=== PATIENT | male | born 1960 | race Caucasian/White ===

== ENCOUNTER 2016-09-29 12:33 | Outpatient (CLI) | payer OTHER ==
--- NOTE | 2016-10-05 10:55 | DIAGNOSTIC IMAGING REPORT ---
PROCEDURE: 2-D M-mode echo Doppler CLINICAL INDICATION: Atrial fib heart murmur TECHNIQUE: Standard technique COMPARISON: None available FINDINGS: Mild aortic sclerosis without stenosis present the mitral valve exhibits mitral annular calcification with moderate mitral regurgitation. The tricuspid valve exhibits moderate tricuspid regurgitation with RVSP 32 mmHg pulmonic valve is normal. Ventricular Hi-Torque heart tree is present LV dimension in normal LV EF is diffusely reduced with an EF of 30-35% right ventricular dimension is normal RV systolic pressure normal and function is normal. There is no abnormalities of the pericardium or a or aortic root seen biatrial enlargement present IMPRESSION: Aortic sclerosis no stenosis Moderate mitral regurgitation Mild to moderate tricuspid regurgitation Diffusely reduced ventricular function ejection fraction 30-35%. LVH Bi atrial enlargement
== END 2016-09-29 23:00 ==
LOC: US SRH 12:33
DX: I08.3 Combined rheumatic disorders of mitral, aortic and tricuspid valves (principal)